=== PATIENT | male | born 1985 | race Caucasian/White ===

== ENCOUNTER 2017-10-05 06:44 | Inpatient (IN) ==
[2017-10-05] MEDS ORDERED: Diphtheria/Tetanus/Pertussis Vaccine Inj 0.5 ML Syringe IM ONE ×2 (06:49→06:51)
[2017-10-05] MEDS ORDERED: Morphine Inj 4 MG/ML Vial ONE (06:54)
[2017-10-05 07:08] LABS: Baso # (Auto) 0.1 th/mm3 (0.0-0.2); Baso % (Auto) 0.4 % (0.0-2.0); Eos # (Auto) 0.1 th/mm3 (0.0-0.4); Eos % (Auto) 0.4 % (0.0-4.0); Hematocrit 42.7 % (39.0-51.0); Hemoglobin 14.3 gm/dL (13.0-17.0); Lymph # (Auto) 4.4 th/mm3 (1.0-4.8); Lymph % (Auto) 30.3 % (9.0-44.0); Mean Corpuscular HGB Conc 33.6 % (32.0-36.0); Mean Corpuscular Hemoglobin 30.8 pg (27.0-34.0); Mean Corpuscular Volume 91.7 fL (80.0-100.0); Mean Platelet Volume 7.8 fL (7.0-11.0); Mono # (Auto) 0.4 th/mm3 (0.0-0.9); Mono % (Auto) 2.5 % (0.0-8.0); Neut # (Auto) 9.7 th/mm3 (1.8-7.7); Neut % (Auto) 66.4 % (16.0-70.0); Platelet Count 325 th/mm3 (150-450); Red Blood Count 4.66 mil/mm3 (4.50-5.90); White Blood Count 14.6 th/mm3 (4.0-11.0)
[2017-10-05 07:19] LABS: Activated Partial Thrombo Time 25.9 sec (24.3-30.1); INR 1.1 Ratio; Prothrombin Time 11.2 sec (9.8-11.6)
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
[2017-10-05] MEDS ORDERED: Naloxone Inj 0.4 MG/ML Vial IV.PUSH PRN (07:43)
[2017-10-05] MEDS ORDERED: Post-op Orders (for Pharmacy) OTHER ONE (07:43)
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
[2017-10-05] MEDS ORDERED: Etomidate Inj 20 MG/10 ML Ampul IV.PUSH ONE (08:40)
[2017-10-05] MEDS ORDERED: Bisacodyl 10 MG Supp RECTAL PRN (09:00)
[2017-10-05] MEDS ORDERED: Morphine Inj 4 MG/ML Vial IV.PUSH PRN (09:00)
[2017-10-05] MEDS ORDERED: HYDROmorphone PF Inj 2 MG/ML Vial IV.PUSH ONE (09:17)
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
[2017-10-05] MEDS: Sod Chloride 0.9% Inj 1,000 ML IV.CONT SCH ×2 (10:16→21:01)
[2017-10-05] MEDS: Famotidine 20 MG Tablet PO SCH ×2 (10:17→20:49)
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
[2017-10-05] MEDS: Senna/Docusate Sodium 8.6/50 MG Tablet PO SCH ×2 (14:42→20:49)
[2017-10-05] MEDS ORDERED: Naloxone Inj 2 MG/2 ML Vial ONE (15:47)
[2017-10-05] MEDS: Morphine Inj 4 MG/ML Vial IV.PUSH PRN (22:52)
[2017-10-06] MEDS: Morphine Inj 4 MG/ML Vial IV.PUSH PRN ×5 (02:29→21:33)
[2017-10-06] MEDS ORDERED: Metoprolol Tartrate 25 MG Tablet PO SCH (04:00)
[2017-10-06] MEDS ORDERED: Chlorhexidine Gluconate 2% 1 Pack (2 Cloths) TOPICAL SCH (04:00)
[2017-10-06] MEDS ORDERED: Sodium Chlor 0.9% Inj 500 ML IV.SIG SCH (04:00)
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
[2017-10-06] MEDS ORDERED: SODIUM CHLOR 0.9% IV.SIG SCH (07:00)
[2017-10-06] MEDS ORDERED: TRANEXAMIC ACID IV.SIG SCH (07:00)
[2017-10-06] MEDS: Methocarbamol 500 MG Tablet PO SCH ×3 (07:22→21:33)
[2017-10-06] MEDS: Sod Chloride 0.9% Inj 1,000 ML IV.CONT SCH ×2 (07:31→17:37)
[2017-10-06] MEDS: Senna/Docusate Sodium 8.6/50 MG Tablet PO SCH ×2 (08:23→20:00)
[2017-10-06] MEDS: Lidocaine 5% Patch T-DERMAL SCH (08:23)
[2017-10-06] MEDS: Famotidine 20 MG Tablet PO SCH ×2 (08:23→20:00)
[2017-10-06 10:41] LABS: Baso % (Auto) 0.2 % (0.0-2.0); Hematocrit 36.1 % (39.0-51.0); Hemoglobin 12.5 gm/dL (13.0-17.0); Lymph # (Auto) 2.7 th/mm3 (1.0-4.8); Lymph % (Auto) 16.5 % (9.0-44.0); Mean Corpuscular HGB Conc 34.5 % (32.0-36.0); Mean Corpuscular Hemoglobin 30.9 pg (27.0-34.0); Mean Corpuscular Volume 89.6 fL (80.0-100.0); Mean Platelet Volume 8.4 fL (7.0-11.0); Mono % (Auto) 6.2 % (0.0-8.0); Neut # (Auto) 12.6 th/mm3 (1.8-7.7); Neut % (Auto) 77.1 % (16.0-70.0); Platelet Count 236 th/mm3 (150-450); Red Blood Count 4.03 mil/mm3 (4.50-5.90); Red Cell Distribution Width 14.1 % (11.6-17.2); White Blood Count 16.3 th/mm3 (4.0-11.0)
[2017-10-06 10:49] LABS: Anion Gap 7 meq/L (5-15); Blood Urea Nitrogen 8 mg/dL (7-18); Calcium 8.3 mg/dL (8.5-10.1); Carbon Dioxide 26.3 meq/L (21.0-32.0); Chloride 109 meq/L (98-107); Glomerular Filtration Rate Greater Than 89 mL/min (>89); Glucose,Random 115 mg/dL (74-106); Potassium 3.3 meq/L (3.5-5.1); Sodium 142 meq/L (136-145)
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
[2017-10-06] MEDS ORDERED: Heparin - SQ 10,000 UNITS/ML Vial ONE (13:02)
[2017-10-06] MEDS ORDERED: Tranexamic Acid Inj 1,300 MG in Sodium Chlor 0.9% Inj 100 ML IV.SIG ONE (15:00)
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
[2017-10-06 20:28] LABS: Bilirubin,Urine Negative (Negative); Clarity,Urine Clear (Clear); Color,Urine Straw (Yellw/Straw); Glucose,Urine (UA) Negative (Negative); Leukocyte Esterase,Urine Negative (Negative); Mucus,Urine Few /lpf (Occasional); Nitrite,Urine Negative (Negative); Specific Gravity,Urine 1.006 (1.002-1.035)
[2017-10-06 20:30] LABS: Amphetamine Screen,Urine Neg (Neg); Barbiturate Screen,Urine Neg (Neg); Cannabinoid Screen,Urine Pos (Neg); Cocaine Screen,Urine Pos (Neg)
[2017-10-06 20:33] LABS: Opiate Screen,Urine Pos (Neg)
[2017-10-07] MEDS: Morphine Inj 4 MG/ML Vial IV.PUSH PRN ×5 (01:15→22:12)
[2017-10-07] MEDS ORDERED: Metoprolol Tartrate 25 MG Tablet PO SCH (04:15)
[2017-10-07] MEDS ORDERED: Chlorhexidine Gluconate 2% 1 Pack (2 Cloths) TOPICAL SCH (04:15)
[2017-10-07] MEDS: Sod Chloride 0.9% Inj 1,000 ML IV.CONT SCH ×3 (04:38→22:59)
[2017-10-07] MEDS ORDERED: Sodium Chlor 0.9% Inj 500 ML IV.SIG SCH (05:00)
[2017-10-07] MEDS: Methocarbamol 500 MG Tablet PO SCH ×3 (06:20→22:11)
[2017-10-07] MEDS ORDERED: Heparin - SQ 10,000 UNITS/ML Vial ONE (06:54)
--- NOTE | 2017-10-07 07:01 | P.PNOP ---
Subjective Interval history: Comfortably. Nursing states that he has been getting up on his own from bed and putting weight on the right lower extremity Physical Exam Vital signs: Vital Signs 10/06/17 08:00 10/06/17 11:20 10/06/17 11:29 Temperature 93.3 F L Pulse Rate 76 Respiratory Rate 16 18 18 Blood Pressure 148/93 H Pulse Oximetry 98 10/06/17 11:35 10/06/17 12:00 10/06/17 12:36 Temperature 98.9 F Pulse Rate 79 Respiratory Rate 18 16 Blood Pressure 139/95 H Pulse Oximetry 99 98 10/06/17 16:00 10/06/17 17:47 10/06/17 20:00 Temperature 98.7 F 98.3 F Pulse Rate 74 84 Respiratory Rate 16 16 17 Blood Pressure 142/99 H 145/89 H Pulse Oximetry 95 99 10/06/17 20:05 10/06/17 23:49 10/07/17 00:00 Temperature 99.1 F Pulse Rate 90 82 72 Respiratory Rate 16 Blood Pressure 142/96 H Pulse Oximetry 98 10/07/17 03:52 10/07/17 04:00 10/07/17 04:38 Temperature 98.8 F Pulse Rate 78 70 Respiratory Rate 17 18 Blood Pressure 137/92 H Pulse Oximetry 98 Intake & Output 10/06/17 10/06/17 10/07/17 06:59 18:59 06:59 Intake Total 1200 / 1200 2410 / 2410 Balance 1200 / 1200 2410 / 2410 Weight 86 kg 86 kg Intake: IV 1200 / 1200 2200 / 2200 NS Inj 1,000 ML @ 100 mls/hr IV 1000 / 1000 1000 / 1000 .CONT .Q10H [facility] Rx#:[id number] Ofirmev Inj 1,000 mg In 100 ml 200 / 200 200 / 200 @ 400 mls/hr IV.SIG Q6H [facility] Rx# :[id number] LR 1000 mL Inj 1,000 ML @ 30 1000 / 1000 mls/hr IV.SIG .Q24H [facility] Rx#: [id number] Oral 210 / 210 Other: # Voids 3 3 Date of Last Bowel Movement 10/03/17 10/03/17 10/03/17 # Bowel Movements 0 Narrative: Right lower extremity: Skin is intact. Pain with movement of hip. Mild pain with range of motion of the knee. Distally intact sensation good capillary refills. He has active dorsiflexion plantar flexion of foot Results - Labs CBC & Chem 7: 10/06/17 09:08 10/06/17 09:08 Laboratory Results - last 24 hr 10/06/17 10/06/17 10/06/17 06:43 09:08 09:08 WBC 16.3 H RBC 4.03 L Hgb 12.5 L Hct 36.1 L MCV 89.6 MCH 30.9 MCHC 34.5 RDW 14.1 Plt Count 236 MPV 8.4 Neut % (Auto) 77.1 H Lymph % (Auto) 16.5 [place] % (Auto) 6.2 Eos % (Auto) 0.0 Baso % (Auto) 0.2 Neut # (Auto) 12.6 H Lymph # (Auto) 2.7 [place] # (Auto) 1.0 H Eos # (Auto) 0.0 Baso # (Auto) 0.0 WBC Differential . Differential Comment Auto diff final Sodium 142 Potassium 3.3 L Chloride 109 H Carbon Dioxide 26.3 Anion Gap 7 BUN 8 Creatinine 0.70 Estimated GFR Greater than 89 Random Glucose 115 H Calcium 8.3 L Urine Color Urine Clarity Urine pH Ur Specific [place] Urine Protein Urine Glucose (UA) Urine Ketones Urine Occult Blood Urine Nitrate Urine Bilirubin Urine Urobilinogen Ur Leukocyte Esterase Urine RBC Urine WBC Urine Mucus Micro UA Comment Urine Culture Comments Urine Opiates Screen Ur Barbiturates Screen Ur Amphetamines Screen U Benzodiazepines Scrn Urine Cocaine Screen U Cannabinoids Screen MTS Gel Crossmatch See Detail 10/06/17 10/06/17 19:40 19:40 WBC RBC Hgb Hct MCV MCH MCHC RDW Plt Count MPV Neut % (Auto) Lymph % (Auto) [place] % (Auto) Eos % (Auto) Baso % (Auto) Neut # (Auto) Lymph # (Auto) [place] # (Auto) Eos # (Auto) Baso # (Auto) WBC Differential Differential Comment Sodium Potassium Chloride Carbon Dioxide Anion Gap BUN Creatinine Estimated GFR Random Glucose Calcium Urine Color Straw Urine Clarity Clear Urine pH 7.0 Ur Specific [place] 1.006 Urine Protein Negative Urine Glucose (UA) Negative Urine Ketones Negative Urine Occult Blood Negative Urine Nitrate Negative Urine Bilirubin Negative Urine Urobilinogen Less than 2 Ur Leukocyte Esterase Negative Urine RBC Less than 1 Urine WBC Less than 1 Urine Mucus Few H Micro UA Comment Culture not ind Urine Culture Comments Culture not ind Urine Opiates Screen Pos H Ur Barbiturates Screen Neg Ur Amphetamines Screen Neg U Benzodiazepines Scrn Neg Urine Cocaine Screen Pos H U Cannabinoids Screen Pos H MTS Gel Crossmatch Assessment and Plan - Problem List (1) Acetabular fracture Code(s): S32.409A - Unspecified fracture of unspecified acetabulum, initial encounter for closed fracture Status: Acute (2) Dislocated hip Code(s): S73.006A - Unspecified dislocation of unspecified hip, initial encounter Status: Acute - Assessment and Plan Right acetabulum fracture with dislocation reduced in the emergency room N.p.o. Plan for surgery today for open reduction internal fixation of the right acetabulum Sign consents Bedrest until surgery Wei and KEVEN bishop A mid-level provider in my office (nurse practitioner or physician collections assistant) may see this patient on follow-up visits and continue to implement the objectives of this plan including: Starting or adjusting medications, injections , cast application, orthotics, brace application, physical therapy, radiological studies (including x-ray, MRI, CT, ultrasound, bone scan), vascular studies, neurologic studies, specialist consultation, and proceeding with surgical management, as appropriate.
[2017-10-07] MEDS ORDERED: SODIUM CHLOR 0.9% IV.SIG SCH (08:00)
[2017-10-07] MEDS ORDERED: TRANEXAMIC ACID IV.SIG SCH (08:00)
[2017-10-07 08:17] LABS: Hematocrit 37.1 % (39.0-51.0); Hemoglobin 12.3 gm/dL (13.0-17.0)
[2017-10-07] MEDS: Famotidine 20 MG Tablet PO SCH ×2 (09:48→20:32)
[2017-10-07] MEDS: Lidocaine 5% Patch T-DERMAL SCH (09:48)
[2017-10-07] MEDS: Senna/Docusate Sodium 8.6/50 MG Tablet PO SCH ×2 (09:48→20:32)
[2017-10-07] MEDS ORDERED: Morphine Inj 4 MG/ML Vial IV.PUSH PRN (09:57)
[2017-10-07] MEDS ORDERED: Post-op Orders (for Pharmacy) OTHER STA (09:57)
[2017-10-07] MEDS ORDERED: Vancomycin Consult Pharmacy 1 EACH OTHER SCH (10:00)
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
[2017-10-07] MEDS ORDERED: fentaNYL Citrate Inj 100 MCG/2 ML Ampul ONE (10:37)
[2017-10-07] MEDS ORDERED: *morphine SULFATE 10 MG/ML PERIprocedure ONLY ONE (10:51)
--- NOTE | 2017-10-07 11:40 | XR ---
EXAM DATE: 10/07/2017 11:34 AM EDT AGE/SEX: 32 years / Male INDICATIONS: Right acetabulum open reduction internal fixation. CLINICAL DATA: This is the patient's initial encounter. Patient reports that signs and symptoms have been present for 1 day and indicates a pain score of Nonresponsive. MEDICAL/SURGICAL HISTORY: None. None. COMPARISON: No prior exams available for comparison. FINDINGS: Multiple fluoroscopic spot films reveal anatomic reduction across the acetabulum with anterior and po sterior fixation. CONCLUSION: Anatomic alignment. Electronically signed by: Justin Skinner MD 10/07/2017 11:38 AM EDT
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
[2017-10-07] MEDS ORDERED: LORazepam 1 MG Tablet PO PRN (16:30)
[2017-10-07] MEDS ORDERED: Haloperidol Inj 5 MG/ML Ampul IV.PUSH PRN (16:30)
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
[2017-10-07 17:26] LABS: Hematocrit 36.4 % (39.0-51.0); Hemoglobin 12.3 gm/dL (13.0-17.0)
[2017-10-07] MEDS ORDERED: Lidocaine PF 1% Inj 5 ML Syringe INFILTRATN ONE (17:50)
[2017-10-07] MEDS ORDERED: Ketorolac Inj 30 MG/ML (IVP) Vial IV.PUSH ONE (17:50)
[2017-10-07] MEDS ORDERED: Neostigmine Inj 5 MG/5 ML Syringe IV.PUSH ONE (17:50)
[2017-10-07] MEDS ORDERED: Glycopyrrolate Inj 1 MG/5 ML Syringe IV.PUSH ONE (17:50)
[2017-10-07] MEDS: Vancomycin Inj 1,250 MG in Sodium Chlor 0.9% Inj 250 ML IV.SIG SCH (18:05)
[2017-10-07] MEDS: ceFAZolin Inj 2,000 MG in Sodium Chlor 0.9% Inj 80 ML IV.SIG SCH (18:06)
[2017-10-07 21:14] LABS: Hepatitis A IgM Antibody Reactive (Nonreactive); Hepatitits B Surface Antigen Nonreactive (Nonreactive)
[2017-10-08] MEDS: Vancomycin Inj 1,250 MG in Sodium Chlor 0.9% Inj 250 ML IV.SIG SCH ×3 (00:41→17:04)
[2017-10-08] MEDS: ceFAZolin Inj 2,000 MG in Sodium Chlor 0.9% Inj 80 ML IV.SIG SCH ×3 (00:42→17:03)
[2017-10-08] MEDS: Morphine Inj 4 MG/ML Vial IV.PUSH PRN ×4 (02:27→16:54)
[2017-10-08] MEDS: Methocarbamol 500 MG Tablet PO SCH ×3 (06:25→21:20)
--- NOTE | 2017-10-08 06:45 | P.PNOP ---
Subjective Interval history: POD 1 s/p ORIF right acetabulum doing well. states has pain but is ambulatory with therapy. Physical Exam Vital signs: Vital Signs 10/07/17 07:34 10/07/17 07:37 10/07/17 10:30 Temperature 98.9 F 97.7 F Pulse Rate 75 95 H Respiratory Rate 18 24 Blood Pressure 135/90 113/70 Pulse Oximetry 98 100 10/07/17 10:45 10/07/17 12:00 10/07/17 16:00 Temperature 98.1 F 97.9 F Pulse Rate 96 H 77 76 Respiratory Rate 26 H 18 18 Blood Pressure 155/98 H 139/88 125/75 Pulse Oximetry 100 99 99 10/07/17 16:37 10/07/17 20:00 10/07/17 23:49 Temperature 98.9 F Pulse Rate 92 H 92 H Respiratory Rate 18 18 Blood Pressure 132/81 Pulse Oximetry 97 10/08/17 00:00 10/08/17 04:00 10/08/17 04:03 Temperature 98.9 F 98.5 F Pulse Rate 80 80 74 Respiratory Rate 18 18 Blood Pressure 132/92 H 133/93 H Pulse Oximetry 98 98 Intake & Output 10/07/17 10/07/17 10/08/17 06:59 18:59 06:59 Intake Total 2500 / 2500 1362.5 / 1362.5 Output Total 2620 / 2620 2260 / 2260 Balance -120 / -120 -897.5 / -897.5 Weight 86 kg Intake: IV 1000 / 1000 1362.5 / 1362.5 LR 1000 mL Inj 1,000 ML @ 90 1000 / 1000 mls/hr IV.CONT .Q11H7M [facility] Rx#: [id number] LR 1000 mL Inj 1,000 ML @ 30 1000 / 1000 mls/hr IV.SIG .Q24H [facility] Rx#: [id number] Vancomycin Inj 1,250 MG In NS 262.5 / 262.5 Inj 250 ML @ 250 mls/hr IV.SIG Q8H [facility] Rx#:[id number] Ancef Inj 2,000 MG In NS Inj 80 100 / 100 ML @ 200 mls/hr IV.SIG Q8H [facility] Rx#:[id number] Oral 800 / 800 Anesthesia Amount 700 / 700 Output: Urine 2100 / 2100 Estimated Blood Loss 100 / 100 Urine Amount (Catheter) 2500 / 2500 Indwelling Urethral Catheter 2500 / 2500 Wound Drainage 160 / 160 Right Thigh 160 / 160 Other: # Voids 3 Date of Last Bowel Movement 10/03/17 10/03/17 10/03/17 Narrative: RLE: dressings clean and dry. intact.NVI. +drain. +CKS - Urinary Catheter Management Indwelling Urethral Catheter Cath placed during this visit: no Reason for continuing: Hourly intake/output Results - Labs CBC & Chem 7: 10/07/17 16:34 10/06/17 09:08 Laboratory Results - last 24 hr 10/05/17 10/07/17 10/07/17 06:50 07:32 16:34 Hgb 12.3 L 12.3 L Hct 37.1 L 36.4 L Hepatitis A IgM Ab Hep Bs Antigen Hep B Core IgM Ab Hep C IgG Ab MTS Gel Crossmatch See Detail 10/07/17 19:01 Hgb Hct Hepatitis A IgM Ab Reactive H Hep Bs Antigen Nonreactive Hep B Core IgM Ab Nonreactive Hep C IgG Ab Nonreactive MTS Gel Crossmatch - Imaging Impressions Hip/Pelvis X-Ray 10/07/17 00:00 CONCLUSION: Anatomic alignment. Assessment and Plan - Problem List (1) Acetabular fracture Code(s): S32.409A - Unspecified fracture of unspecified acetabulum, initial encounter for closed fracture Status: Acute (2) Dislocated hip Code(s): S73.006A - Unspecified dislocation of unspecified hip, initial encounter Status: Acute - Assessment and Plan 1) Right Acetabulum Fx s/p ORIF - POD 1 -TTWB -daily dressing changes POD 2 -DC drain POD 2 -knee brace at all times -posterior hip precautions -work with therapy. potential discharge home Fri/Sat -f/u with [facility] or [facility]UE in 2 weeks [id number] Prescription Drug Monitoring Database has been queried and verified prior to prescribing the controlled substance. Acute pain exception. This patient has normal, predicted, physiological, and time limited response to an adverse mechanical stimulus associated with surgery, trauma, or acute illness as described in my notes. There is a lack of alternative treatment options other than to include the prescribed narcotic treatment for this condition. Patient was recently at Rehab where he was being prescribed subutex for drug addiction. will provide him with pain prescription for discharge but will closely monitory his narcotic pain medication use due to his recent rehab placement.
[2017-10-08] MEDS: Sod Chloride 0.9% Inj 1,000 ML IV.CONT SCH ×2 (07:37→18:45)
[2017-10-08] MEDS ORDERED: Pharmacy Ordered Lab Info OTHER ONE (07:45)
[2017-10-08 08:10] LABS: Baso % (Auto) 0.3 % (0.0-2.0); Eos % (Auto) 0.1 % (0.0-4.0); Hematocrit 31.8 % (39.0-51.0); Hemoglobin 10.9 gm/dL (13.0-17.0); Lymph # (Auto) 2.9 th/mm3 (1.0-4.8); Lymph % (Auto) 22.5 % (9.0-44.0); Mean Corpuscular HGB Conc 34.3 % (32.0-36.0); Mean Corpuscular Hemoglobin 30.6 pg (27.0-34.0); Mean Corpuscular Volume 89.3 fL (80.0-100.0); Mean Platelet Volume 8.2 fL (7.0-11.0); Mono # (Auto) 0.8 th/mm3 (0.0-0.9); Neut % (Auto) 71.1 % (16.0-70.0); Platelet Count 210 th/mm3 (150-450); Red Blood Count 3.56 mil/mm3 (4.50-5.90); Red Cell Distribution Width 13.8 % (11.6-17.2); White Blood Count 12.7 th/mm3 (4.0-11.0)
[2017-10-08 08:32] LABS: Albumin 2.9 g/dL (3.4-5.0); Anion Gap 8 meq/L (5-15); Aspartate Aminotransferase 53 U/L (15-37); Blood Urea Nitrogen 8 mg/dL (7-18); Calcium 7.9 mg/dL (8.5-10.1); Carbon Dioxide 26.8 meq/L (21.0-32.0); Chloride 107 meq/L (98-107); Glomerular Filtration Rate Greater Than 89 mL/min (>89); Glucose,Random 106 mg/dL (74-106); Potassium 3.5 meq/L (3.5-5.1); Sodium 142 meq/L (136-145)
[2017-10-08] MEDS: Indomethacin 75 MG ER Capsule PO SCH (08:34)
[2017-10-08] MEDS: Senna/Docusate Sodium 8.6/50 MG Tablet PO SCH ×2 (08:34→21:20)
[2017-10-08] MEDS: Lidocaine 5% Patch T-DERMAL SCH (08:34)
[2017-10-08] MEDS: Famotidine 20 MG Tablet PO SCH ×2 (08:34→21:20)
[2017-10-08] MEDS: Multivitamin/Minerals Therapeutic Tablet PO SCH (08:34)
[2017-10-08] MEDS: Folic Acid 1 MG Tablet PO SCH (08:34)
[2017-10-08] MEDS: Enoxaparin Inj 30 MG/0.3 ML Syringe SQ SCH (08:34)
[2017-10-08 08:41] LABS: Alanine Aminotransferase 32 U/L (12-78); Alkaline Phosphatase 55 U/L (45-117); Free T4 (Free Thyroxine) 1.17 ng/dL (0.76-1.46); Phosphorus 2.8 mg/dL (2.5-4.9); Total Protein 6.2 g/dL (6.4-8.2)
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
[2017-10-08] MEDS ORDERED: Mirtazapine 15 MG Tablet PO SCH (21:00)
[2017-10-09] MEDS: Morphine Inj 4 MG/ML Vial IV.PUSH PRN ×2 (00:09→04:44)
[2017-10-09] MEDS: ceFAZolin Inj 2,000 MG in Sodium Chlor 0.9% Inj 80 ML IV.SIG SCH ×2 (00:34→11:54)
[2017-10-09] MEDS: Vancomycin Inj 1,250 MG in Sodium Chlor 0.9% Inj 250 ML IV.SIG SCH ×3 (01:23→17:52)
[2017-10-09] MEDS: Sod Chloride 0.9% Inj 1,000 ML IV.CONT SCH ×2 (04:51→13:30)
[2017-10-09 05:32] VITALS: TEMP 98.3
[2017-10-09] MEDS: Methocarbamol 500 MG Tablet PO SCH ×2 (05:51→15:15)
--- NOTE | 2017-10-09 07:00 | P.PNOP ---
Subjective Interval history: Resting comfortably. No new complaints. Physical Exam Vital signs: Vital Signs 10/08/17 08:00 10/08/17 09:00 10/08/17 12:00 Temperature 98 F 98 F Pulse Rate 100 H 82 90 Respiratory Rate 18 18 Blood Pressure 122/86 122/86 Pulse Oximetry 98 98 10/08/17 14:37 10/08/17 16:00 10/08/17 16:10 Temperature 98 F Pulse Rate 79 Respiratory Rate 18 16 Blood Pressure 110/77 Pulse Oximetry 97 99 10/08/17 20:00 10/08/17 21:52 10/09/17 00:00 Temperature 98.2 F 98.4 F Pulse Rate 82 99 H Respiratory Rate 20 18 20 Blood Pressure 128/76 132/78 Pulse Oximetry 98 97 10/09/17 00:11 10/09/17 03:53 10/09/17 04:51 Temperature Pulse Rate Respiratory Rate 18 18 18 Blood Pressure Pulse Oximetry 10/09/17 05:30 Temperature 98.3 F Pulse Rate 86 Respiratory Rate 20 Blood Pressure 126/80 Pulse Oximetry 99 Intake & Output 10/08/17 10/08/17 10/09/17 06:59 18:59 06:59 Intake Total 1725.0 / 1725.0 725.0 / 725.0 1012.5 / 1012.5 Output Total 2260 / 2260 830 / 830 30 / 30 Balance -535.0 / -535.0 -105.0 / -105.0 982.5 / 982.5 Weight 86 kg Intake: IV 1725.0 / 1725.0 725.0 / 725.0 362.5 / 362.5 LR 1000 mL Inj 1,000 ML @ 90 1000 / 1000 mls/hr IV.CONT .Q11H7M [facility] Rx#: [id number] Vancomycin Inj 1,250 MG In NS 525.0 / 525.0 525.0 / 525.0 262.5 / 262.5 Inj 250 ML @ 250 mls/hr IV.SIG Q8H [facility] Rx#:[id number] Ancef Inj 2,000 MG In NS Inj 80 200 / 200 200 / 200 100 / 100 ML @ 200 mls/hr IV.SIG Q8H [facility] Rx#:[id number] Oral 650 / 650 Output: Urine 2100 / 2100 800 / 800 Wound Drainage 160 / 160 30 / 30 Right Thigh 160 / 160 Other: # Voids 2 Date of Last Bowel Movement 10/03/17 10/08/17 Narrative: Right lower extremity: Clean dry dressings intact. Drain in place. Distally intact sensation good capillary refills. Knee immobilizer in place - Urinary Catheter Management Indwelling Urethral Catheter Cath placed during this visit: yes, but has since been removed by the nurse Reason for continuing: Not indwelling catheter Removal date: 10/08/17 Removal time: 14:15 Results - Labs CBC & Chem 7: 10/08/17 07:36 10/08/17 07:36 Laboratory Results - last 24 hr 10/06/17 10/08/17 10/08/17 06:43 07:36 07:36 WBC 12.7 H RBC 3.56 L Hgb 10.9 L Hct 31.8 L MCV 89.3 MCH 30.6 MCHC 34.3 RDW 13.8 Plt Count 210 MPV 8.2 Neut % (Auto) 71.1 H Lymph % (Auto) 22.5 [place] % (Auto) 6.0 Eos % (Auto) 0.1 Baso % (Auto) 0.3 Neut # (Auto) 9.0 H Lymph # (Auto) 2.9 [place] # (Auto) 0.8 Eos # (Auto) 0.0 Baso # (Auto) 0.0 WBC Differential . Differential Comment Auto diff final Sodium 142 Potassium 3.5 Chloride 107 Carbon Dioxide 26.8 Anion Gap 8 BUN 8 Creatinine 0.71 Estimated GFR Greater than 89 Random Glucose 106 Calcium 7.9 L Phosphorus 2.8 Magnesium 2.0 Total Bilirubin 0.6 AST 53 H ALT 32 Alkaline Phosphatase 55 Total Protein 6.2 L Albumin 2.9 L TSH 1.160 Free T4 1.17 Vancomycin Trough MTS Gel Crossmatch See Detail 10/08/17 07:36 WBC RBC Hgb Hct MCV MCH MCHC RDW Plt Count MPV Neut % (Auto) Lymph % (Auto) [place] % (Auto) Eos % (Auto) Baso % (Auto) Neut # (Auto) Lymph # (Auto) [place] # (Auto) Eos # (Auto) Baso # (Auto) WBC Differential Differential Comment Sodium Potassium Chloride Carbon Dioxide Anion Gap BUN Creatinine Estimated GFR Random Glucose Calcium Phosphorus Magnesium Total Bilirubin AST ALT Alkaline Phosphatase Total Protein Albumin TSH Free T4 Vancomycin Trough 14.9 H MTS Gel Crossmatch Assessment and Plan - Problem List (1) Acetabular fracture Code(s): S32.409A - Unspecified fracture of unspecified acetabulum, initial encounter for closed fracture Status: Acute (2) Dislocated hip Code(s): S73.006A - Unspecified dislocation of unspecified hip, initial encounter Status: Acute - Assessment and Plan 1) Right Acetabulum Fx s/p ORIF - POD 2 -TTWB, no active leg lifts -daily dressing changes POD 2 -DC drain POD 2 -knee brace at all times -posterior hip precautions -work with therapy. potential discharge home tomorrow -f/u with [facility] or [facility] in 2 weeks check24 Prescription Drug Monitoring Database has been queried and verified prior to prescribing the controlled substance. Acute pain exception. This patient has normal, predicted, physiological, and time limited response to an adverse mechanical stimulus associated with surgery, trauma, or acute illness as described in my notes. There is a lack of alternative treatment options other than to include the prescribed narcotic treatment for this condition. Patient was recently at Rehab where he was being prescribed subutex for drug addiction. will provide him with pain prescription for discharge but will closely monitory his narcotic pain medication use due to his recent rehab placement.
--- NOTE | 2017-10-09 07:02 | P.DCO ---
- Physical Therapy Physical Therapy: Gait training, Safety evaluation Hip: Hip fracture, Protocol: Right, Posterior hip precautions Right Lower Extremity Weight Bearing: Toe touch weight bearing (No active leg lifts) - Nursing Dressing changes: Xeroform (Begin adding Xeroform 10/17/2017 daily over incision) , Coverderm/Primapore - Certification Need for Home Health services: I have seen patient Yoseph English II on 10/09/17. My clinical findings support the need for the requested home health care services because: Need for Home Health Services: Limited mobility due to disease progression Homebound Certification: I certify that my clinical findings support that this patient is homebound because: Homebound Certification: Post-op weakness
[2017-10-09] MEDS: Folic Acid 1 MG Tablet PO SCH (10:34)
[2017-10-09] MEDS: Famotidine 20 MG Tablet PO SCH (10:34)
[2017-10-09] MEDS: Indomethacin 75 MG ER Capsule PO SCH (10:35)
[2017-10-09] MEDS: Senna/Docusate Sodium 8.6/50 MG Tablet PO SCH (11:53)
[2017-10-09] MEDS: Lidocaine 5% Patch T-DERMAL SCH (11:54)
[2017-10-09] MEDS: Enoxaparin Inj 30 MG/0.3 ML Syringe SQ SCH (11:55)
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
[2017-10-09] MEDS: Multivitamin/Minerals Therapeutic Tablet PO SCH (12:04)
[2017-10-09 12:05] VITALS: RESP 18
[2017-10-09 12:29] VITALS: BP 140/78
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
[2017-10-09 13:44] VITALS: O2SAT 99
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
[2017-10-09 16:34] VITALS: PULSE 90
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
== END 2017-10-09 17:51 | disposition home or self-care (01) ==
LOC: NEPI 06:44 → NEDA 07:45 → N06 12:55 → UNDODISIN 10-09 14:16
PROVIDERS: ADMIT Surgery; ATTEND Surgery
PROC: ORIFACE (2017-10-07 07:59)